=== PATIENT | male | born 1985 | race Caucasian/White ===

== ENCOUNTER 2023-06-24 08:04 | Emergency (ER) | payer MEDICAID ==
[~2023-06-24] VITALS: Ht 200.7 cm; Wt 109.3 kg
[2023-06-24] MEDS ORDERED: CEPH500C2 PO ×2 (08:16→08:21)
[2023-06-24] MEDS ORDERED: CLIN300C12 PO ×2 (08:16→08:21)
[2023-06-24 08:26] VITALS: BP 127/86; TEMP 98.8; O2SAT 100
== END 2023-06-24 08:27 | disposition home or self-care (01) ==
LOC: ER 08:16
DX: L02.416 Cutaneous abscess of left lower limb (principal); F19.10 Other psychoactive substance abuse, uncomplicated; Z79.899 Other long term (current) drug therapy; Z60.2 Problems related to living alone; Z88.2 Allergy status to sulfonamides